=== PATIENT | male | born 1975 | race Caucasian/White ===

== ENCOUNTER 2023-07-18 08:42 | Outpatient (CLI) | payer OTHER, SELFPAY ==
[2023-07-18 13:24] LABS: Basophils Absolute Auto 0.1 K/mm3 (0.0-0.1); Eosinophils Absolute Auto 0.3 K/mm3 (0-0.3); Eosinophils Percent Auto 4.2 % (0-4.4); Hematocrit 49.8 % (42.0-52.0); Hemoglobin 15.2 g/dL (14.0-18.0); Immature Granulocyte Absolute 0.03 K/mm3 (0.00-0.031); Immature Granulocyte Percent A 0.5 % (0-0.5); Lymphocytes Absolute Auto 1.45 K/mm3 (0.9-3.2); Lymphocytes Percent Auto 24.6 % (18.3-44.2); Mean Corpuscular HGB Conc 30.5 g/dl (32-36); Mean Corpuscular Hemoglobin 25.1 pg (26-34); Mean Corpuscular Volume 82.3 fl (80-100); Mean Platelet Volume 10.7 fl (7.4-10.4); Monocytes Absolute Auto 0.4 K/mm3 (0.1-0.6); Neutrophils Absolute Auto 3.7 K/mm3 (1.3-6.7); Neutrophils Percent Auto 62.7 % (45.5-73.1); Platelet Count Result 263 k/mm3 (150-375); Red Blood Count 6.05 M/mm3 (4.6-6.20); Red Cell Distribution Width 12.7 % (11.5-14.5); White Blood Count 5.9 K/mm3 (4.5-10.0)
[2023-07-18 13:51] LABS: Hemoglobin A1C 8.2 % (<5.7)
[2023-07-18 14:30] LABS: Microalbumin Urine Random 23.3 mg/L (0-16.7)
[2023-07-18 14:31] LABS: Creatinine Urine 223.3 mg/dL; MALB Creatinine Ratio 10.4 mg/g (0-30)
[2023-07-18 18:50] LABS: Alanine Aminotransferase 31 U/L (6-50); Alkaline Phosphatase 63 U/L (38-126); Anion Gap 5 mmol/L (4-12); Aspartate Amino Transferase 53 U/L (17-59); Bilirubin,Total 0.6 mg/dL (0.2-1.3); Blood Urea Nitrogen 8 mg/dL (9-20); Calcium 9.5 mg/dL (8.4-10.2); Carbon Dioxide 30 mmol/L (22-30); Chloride 104 mmol/L (98-107); Cholesterol 129 mg/dL (0-200); Estimated Glomerular Filt Rate > 60; Glucose 164 mg/dL (65-110); HDL Direct 53 mg/dL; Potassium 4.9 mmol/L (3.4-5.0); Sodium 139 mmol/L (137-145); Triglycerides 63 mg/dL (<150)
[2023-07-18 19:01] LABS: LDL Cholesterol Direct 72 mg/dL
== END 2023-07-18 08:43 | disposition home or self-care (01) ==
LOC: ANHGOSHLAB 08:43
PROVIDERS: PCP Internal Medicine; Visit Provider Nurse Practitioner
DX: E11.9 Type 2 diabetes mellitus without complications (principal)
CPT/HCPCS: 36415; 80053; 80061; 82043; 83036; 85025

== ENCOUNTER 2023-10-21 06:20 | Day surgery (SDC) | payer OTHER, SELFPAY ==
[2023-07-21 09:57] VITALS: BMI 25.4
--- NOTE | 2023-10-17 14:57 | PM.HPGS ---
History of Present Illness History of Present Illness Consent: Risks, benefits, and alternatives have been discussed and questions answered. Patient agrees to proceed with procedure. Chief complaint: Screening neoplasm of colon Narrative: Neftali Henning is a 48 year old male who is referred for colon cancer screening. Review of Systems Review of Systems: All systems reviewed & are unremarkable except as noted in HPI and below PMFSH Past Medical History Medical History Allergies Asthma Type 2 diabetes mellitus with hyperglycemia Surgical History Surgical History H/O gastric sleeve Family History Family History Father Alcoholism Diabetes mellitus Hypertension Heart problem Mother Breast cancer Bone cancer Grandparent Heart problem Other Family history of alcoholism Family history of chronic obstructive pulmonary disease Family history of congestive heart failure Family history of malignant neoplasm of bone Family history of malignant neoplasm of breast Social History Social History Smoking status: Former smoker Tobacco type: cigarettes Alcohol intake: current Alcohol use details: Rarely Substance use: never Do You Feel Safe in your Home?: Yes Lack of Transportation: No Lack of Food: Never True Current Housing: I Have Housing Concerned About Future Housing: No Difficulty Paying Gas/Electric Bills: No Difficulty Paying for Meds: No Currently Unemployed: No Education: Associate Degree Difficulty w/ Childcare or Family Care: No Living arrangements: with family Occupation/Education: occupation 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: Yes Meds Home Medications and Allergies Home Medications Medication Instructions Recorded Confirmed Type dulaglutide 0.75 mg/0.5 mL 0.75 mg (0.5 mL) subcut WEEKLY 3 07/18/23 10/21/23 Rx subcutaneous pen injector months #6.5 mL (Trulicity) fluticasone furoate 100 1 inh inhalation DAILY #60 ea 07/18/23 10/21/23 Rx mcg-vilanterol 25 mcg/dose inhalation powder (Breo Ellipta) fluticasone propionate 50 2 spray intranasal DAILY 07/18/23 10/07/23 History mcg/actuation nasal spray,suspension (Flonase Allergy Relief) testosterone cypionate 100 mg/mL 80 mg IM ONCE 07/18/23 10/21/23 History intramuscular oil tadalafil 20 mg tablet (Cialis) 20 mg PO DAILY PRN sexual activity 08/06/23 10/21/23 Rx #30 tabs albuterol sulfate 90 mcg/actuation 1 inh inhalation Q4H #8.5 grams 09/23/23 10/07/23 Rx aerosol inhaler Allergies Allergy/AdvReac Type Severity Reaction Status Date / Time poison tigre extract Allergy Intermediate facial Verified 10/21/23 08:02 swelling Exam Const: General: alert Orientation/consciousness: patient oriented x3 Resp: Auscultation: clear to auscultation bilaterally Cardio: Rhythm: regular rhythm GI: GI Palp: Yes Soft to palpation and No Tenderness to palpation present (GI) Neuro: General: patient oriented x3 Assessment and Plan Assessment and plan (1) Screening for colon cancer: Code(s): Z12.11 - Encounter for screening for malignant neoplasm of colon Status: Acute Assessment and Plan: Colonoscopy with possible biopsy or polypectomy or cautery or injection of substances.
[2023-10-21 08:04] VITALS: BMI 23.4
[2023-10-21 08:06] VITALS: BP 118/89; PULSE 91; RESP 20; TEMP 36.7; O2SAT 98
[2023-10-21 08:15] LABS: Glucose Point of Care 118 mg/dl (65-105)
[2023-10-21] MEDS: LACTATED RINGERS 1,000 ML 150 ML IV CONT (08:16)
--- NOTE | 2023-10-21 08:44 | WPDANESEPPF ---
Anes - Initial Pre Proc Eval Procedure: Operation Date: 10/21/23 08:30 Proposed Procedures p Screening Colonoscopy - Laurent Franks MD Date/Time: 10/21/23 08:44 Surgeon: Laurent Franks MD Pre Op Diagnosis: Screening neoplasm of colon Patient Data Age: 48 Gender: M Height: 1.8 m Weight: 76.2 kg Last Vital Signs Temp 36.7 C 10/21/23 08:06 Pulse 91 10/21/23 08:06 Resp 20 10/21/23 08:06 BP 118/89 10/21/23 08:06 Pulse Ox 98 10/21/23 08:06 O2 Del Method Room Air 10/21/23 08:06 Allergies Allergy/AdvReac Type Severity Reaction Status Date / Time poison tigre extract Allergy Intermediate facial Verified 10/21/23 08:02 swelling Home Medications Medication Instructions Recorded Confirmed Type dulaglutide 0.75 mg/0.5 mL 0.75 mg (0.5 mL) subcut WEEKLY 3 07/18/23 10/21/23 Rx subcutaneous pen injector months #6.5 mL (Trulicity) fluticasone furoate 100 1 inh inhalation DAILY #60 ea 07/18/23 10/21/23 Rx mcg-vilanterol 25 mcg/dose inhalation powder (Breo Ellipta) fluticasone propionate 50 2 spray intranasal DAILY 07/18/23 10/07/23 History mcg/actuation nasal spray,suspension (Flonase Allergy Relief) testosterone cypionate 100 mg/mL 80 mg IM ONCE 07/18/23 10/21/23 History intramuscular oil tadalafil 20 mg tablet (Cialis) 20 mg PO DAILY PRN sexual activity 08/06/23 10/21/23 Rx #30 tabs albuterol sulfate 90 mcg/actuation 1 inh inhalation Q4H #8.5 grams 09/23/23 10/07/23 Rx aerosol inhaler Laboratory Tests 10/21/23 08:12 POC Capillary Glucose 118 H mg/dl (65-105) Patient hx anesthesia problems: none Family hx anesthesia problems: none Results Review: All pre-operative results and documents have been reviewed as part of the pre-operative evaluation. [facility] Past Medical History Medical History Allergies Asthma Type 2 diabetes mellitus with hyperglycemia Surgical History Surgical History H/O gastric sleeve Family History Family History Father Alcoholism Diabetes mellitus Hypertension Heart problem Mother Breast cancer Bone cancer Grandparent Heart problem Other Family history of alcoholism Family history of chronic obstructive pulmonary disease Family history of congestive heart failure Family history of malignant neoplasm of bone Family history of malignant neoplasm of breast Social History Social History Smoking status: Former smoker Tobacco type: cigarettes Alcohol intake: current Alcohol use details: Rarely Substance use: never Do You Feel Safe in your Home?: Yes Lack of Transportation: No Lack of Food: Never True Current Housing: I Have Housing Concerned About Future Housing: No Difficulty Paying Gas/Electric Bills: No Difficulty Paying for Meds: No Currently Unemployed: No Education: Associate Degree Difficulty w/ Childcare or Family Care: No Living arrangements: with family Occupation/Education: occupation 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 Informed Consent: The patient's anesthetic plan and its attendant risks and benefits were discussed with the patient/family/POA. Questions were solicited
[2023-10-21 09:05] VITALS: BP 100/65; PULSE 69; RESP 16; O2SAT 98
[2023-10-21 09:15] VITALS: BP 110/75; PULSE 82; RESP 20; O2SAT 97
--- NOTE | 2023-10-21 09:34 | WPDANESPN ---
Anes - Prog Note Post-Op Date/Time: 10/21/23 09:34 Cardiovascular status: normal Respiratory status: normal Airway patency: baseline Mental status: baseline Post-Op hydration status: normal Vital Signs: Last Vital Signs Temp 36.7 C 10/21/23 08:06 Pulse 91 10/21/23 08:06 Resp 20 10/21/23 08:06 BP 118/89 10/21/23 08:06 Pulse Ox 98 10/21/23 08:06 O2 Del Method Room Air 10/21/23 08:06 Pain Score (VAS): 0/10 I/O: Intake & Output 10/20/23 10/21/23 10/21/23 23:59 07:59 15:59 Intake Total 400 Balance 400 10/21/23 08:12 POC Capillary Glucose 118 H Patient Feedback: Patient satisfied with anesthetic care.
[2023-10-21 09:49] VITALS: BP 112/68; PULSE 74; RESP 20; O2SAT 98
== END 2023-10-21 09:41 | disposition home or self-care (01) ==
PROVIDERS: PCP Nurse Practitioner; Visit Provider Internal Medicine Gastroenterology
PROC: 0DJD8ZZ Inspection of Lower Intestinal Tract, Via Natural or Artificial Opening Endoscopic (ICD-10-PCS; CPT 45378; principal; 2023-10-21 08:30)
DX: Z12.11 Encounter for screening for malignant neoplasm of colon (principal); K64.8 Other hemorrhoids
CPT/HCPCS: 45378